=== PATIENT | male | born 1990 | race Caucasian/White ===

== ENCOUNTER 2021-03-22 16:26 | Emergency (ER) | payer MEDICAID ==
[~2021-03-22] VITALS: Ht 170.2 cm; Wt 69.0 kg
[2021-03-22] MEDS: ACETAMINOPHEN 325MG TABLET PO ONE (17:54)
[2021-03-22] MEDS ORDERED: ACET-2708 MT (18:02)
[2021-03-22 18:35] VITALS: BP 128/70
== END 2021-03-22 18:24 | disposition home or self-care (01) ==
LOC: ER 16:26
DX: U07.1 COVID-19 (principal); R05 Cough; R06.02 Shortness of breath
CPT/HCPCS: 71045; 99284; C9803; U0003; U0005